=== PATIENT | female | born 1965 | race Caucasian/White ===

== ENCOUNTER → 2020-02-29 11:00 | Outpatient (BNVA) | payer OTHER, SELFPAY | PROVIDERS: Family Provider Nurse Practitioner Family; PCP Nurse Practitioner Family; Visit Provider Emergency Medicine | DX: R07.89 Other chest pain (principal) | CPT/HCPCS: 80053; 80061; 83690; 83880; 84484; 85025 ==

== ENCOUNTER → 2020-06-11 11:51 | Outpatient (BNVA) | payer OTHER, SELFPAY | PROVIDERS: Family Provider Nurse Practitioner Family; PCP Family Medicine; Referring Provider Internal Medicine; Visit Provider Internal Medicine | DX: Z20.822 Contact with and (suspected) exposure to COVID-19 (principal) | CPT/HCPCS: 87635 ==

== ENCOUNTER 2020-06-18 07:48 | Day surgery (SDC) | payer OTHER, SELFPAY ==
[2020-06-16 10:39] VITALS: BMI 46.0
[2020-06-18 08:02] VITALS: BP 154/96; PULSE 103; RESP 18; TEMP 36.8; O2SAT 97
[2020-06-18] MEDS: sodium chloride 0.9% 1,000 ML 30 ML IV (08:06)
--- NOTE | 2020-06-18 08:34 | ANES.PREANE2 ---
Pre-Anesthetic Assessment Pre-Anesthetic Assessment: Height/Weight: Height 1.63 m Weight 121.563 kg Temp Pulse Resp BP Pulse Ox 98.2 F 103 H 18 154/96 97 06/18/20 08:02 06/18/20 08:02 06/18/20 08:02 06/18/20 08:02 06/18/20 08:02 Preop Diagnosis: dbl Proposed Procedure: Operation Date: 06/18/20 09:00 Proposed Procedures p EGD/colon 96153 [id number] K21.9 Z12.11(Not Applicable) - Thomas Del Cid MD s Colonoscopy(Not Applicable) - Thomas Del Cid MD Was Beta Petey taken within 24 hours: N/A Last intake: Intake Last Liquid Date 06/17/20 Last Liquid Time 20:30 Last Solid Date 06/16/20 Social: Social History: No alcohol and No tobacco Exam: Pre-Anes Outpt Exam: alert, oriented x 3, clear to auscultation bilaterally and regular rate & rhythm Airway: Submandibular: WNL Cervical ROM: WNL MP: 2 Dentition: Partials GI: GI: GERD Metabolic: Metabolic: Morbid obesity and Thyroid Neuropsych: Neuropsych: Anxiety and Depression Anesthetic Plan: ASA status: 3 Anesthesia: MAC Risk of > 500 ml blood loss (7ml/kg in children): No Meds/Allergies Current Medications: Current Medications Generic Name Dose Route Start Last Admin Trade Name Freq PRN Reason Stop Dose Admin Sodium Chloride 1,000 mls @ 30 ml s/hr 06/18/20 08:00 06/18/20 08:06 Sodium Chloride 0.9% IV 06/19/20 07:59 30 mls/hr .Q24H MEENA Administration PFSH Anesthesia PFSH: Medical History Carpal tunnel syndrome Surgical History H/O shoulder surgery H/O tubal ligation H/O: hysterectomy History of carpal tunnel surgery Hx of cholecystectomy Family History Mother Hypertension Hyperlipidemia Father Hypertension Grandmother Diabetes Grandmother No problems noted. Grandfather Diabetes Social History (Updated 03/04/20 @ 09:[address]) Smoking and tobacco status: never smoked Alcohol intake: never History of recent travel: No Female Reproductive History: Spontaneous abortions: No Data Anesthesia Cardiac Studies: No Data to Display
--- NOTE | 2020-06-18 08:44 | P.HP_ITS ---
Same Day Surgery H&P Indication for Procedure/HPI DATE OF PROCEDURE: June 18, 2020 CHIEF COMPLAINT/INDICATIONFOR SURGICAL PROCEDURE: GERD, screen for colon cancer PREOP DIAGNOSIS: dbl PLANNED PROCEDRUE: Operation Date: 06/18/20 09:00 Proposed Procedures p EGD/colon 42988 27455 K21.9 Z12.11(Not Applicable) - Thomas Del Cid MD s Colonoscopy(Not Applicable) - Thomas Del Cid MD Medications/Allergies* Home Medications Medication Instructions Recorded Confirmed Type aspirin 81 mg tablet,delayed 81 mg PO DAILY 03/02/20 06/18/20 History release fish, borage, flaxseed oils-omega 1 cap PO DAILY 03/02/20 06/18/20 History 3,6,9 cb #1 400 mg-400 mg-400 mg cap Allergies/Adverse Reactions Allergy/AdvReac Type Severity Reaction Status Date / Time Penicillins Allergy Mild ALGY-Swell Verified 06/18/20 08:11 Lip/Tongue/Throat Current Medications: Generic Name Dose Route Start Last Admin Trade Name Freq PRN Reason Stop Dose Admin Sodium Chloride 1,000 mls @ 30 mls/hr 06/18/20 08:00 06/18/20 08:06 Sodium Chloride 0.9% IV 06/19/20 07:59 30 mls/hr .Q24H MEENA Administration Pertinent History/Comorbid Conditions* Medical History (Updated 04/13/20 @ 12:36 by Jennifer Adam MD) Carpal tunnel syndrome Surgical History (Updated 03/03/20 @ 15:17 by Jennifer Adam MD) H/O shoulder surgery H/O tubal ligation H/O: hysterectomy History of carpal tunnel surgery Hx of cholecystectomy Family History (Updated 02/29/20 @ 11:44 by Екатерина Ramirez LPN) Diabetes Grandmother Grandfather Hyperlipidemia Mother Hypertension Mother Father Social History Smoking and tobacco status: never smoked Alcohol intake: never History of recent travel: No Pertinent Exam Findings alert, oriented x 3, clear to auscultation bilaterally, regular rate & rhythm, operative site marked and procedure specific exam findings Recommendations Surgery/Procedure today Coding Level of Care Code 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
[2020-06-18 09:25] VITALS: BP 105/64; PULSE 78; RESP 16; TEMP 36.2; O2SAT 94
--- NOTE | 2020-06-18 09:37 | ANE.PACU2 ---
Inpatient post-anesthesia follow up: Airway intact: Yes Vital signs: Temperature 97.1 F Pulse Rate 78 Respiratory Rate 16 Blood Pressure 105/64 Pulse Oximetry 94 Oxygen Delivery Me thod Room Air Oxygen Flow Rate Fraction of Inspir ed Oxygen Hydration adequate: Yes Nausea and vomiting: No Pain level: 1 Mental status: Baseline
[2020-06-18 09:40] VITALS: BP 128/83; PULSE 83; RESP 16; TEMP 36.7; O2SAT 95
--- NOTE | 2020-06-18 13:57 | ANE.PACU2 ---
Inpatient post-anesthesia follow up: Airway intact: Yes Vital signs: Temperature 98.0 F Pulse Rate 83 Respiratory Rate 16 Blood Pressure 128/83 Pulse Oximetry 95 Oxygen Delivery Me thod Room Air Oxygen Flow Rate Fraction of Inspir ed Oxygen Hydration adequate: Yes Nausea and vomiting: No Pain level: 1 Mental status: Baseline
[2020-06-21 14:26] LABS: H. Pylori / CLO Test Negative
== END 2020-06-18 10:00 | disposition home or self-care (01) ==
PROVIDERS: PCP Family Medicine; Visit Provider Internal Medicine
PROC: 0DJ08ZZ Inspection of Upper Intestinal Tract, Via Natural or Artificial Opening Endoscopic (ICD-10-PCS; CPT 43235; principal; 2020-06-18 09:00)
PROC: 0DJD8ZZ Inspection of Lower Intestinal Tract, Via Natural or Artificial Opening Endoscopic (ICD-10-PCS; CPT 45378; 2020-06-18 09:00)
DX: Z12.11 Encounter for screening for malignant neoplasm of colon (principal); K21.9 Gastro-esophageal reflux disease without esophagitis; Z79.82 Long term (current) use of aspirin; E66.01 Morbid (severe) obesity due to excess calories; Z68.42 Body mass index [BMI] 45.0-49.9, adult; F41.9 Anxiety disorder, unspecified; F32.9 Major depressive disorder, single episode, unspecified
CPT/HCPCS: 43235; 45378; 87077; J2704; J7030

== ENCOUNTER 2020-07-22 13:57 | Outpatient (CLI) | payer OTHER, SELFPAY ==
--- NOTE | 2020-07-22 14:30 | MM_ITS ---
WS: [id number] SCREENING DIGITAL MAMMOGRAM WITH CAD HISTORY: Z12.39 - Encounter for other screening for malignant neoplasm of breast COMPARISON: None available. Bilateral CC and MLO views submitted. Computer aided detection analyzed. Breast composition: There are scattered areas of fibroglandular density. 6 mm slightly spiculated asy mmetry upper outer quadrant of the LEFT breast with associated calcifications. Some of these calcific ations may extend along a ductal distribution. Otherwise normal fibroglandular pattern. MM/[place] [id number] IMPRESSION: BI-RADS: 0-Incomplete: Need additional imaging evaluation FOLLOW UP: Need Additional Imaging LEFT breast: Spot compression views (CC and MLO). True ML. Ultrasound to follow if abnormality persists.
== END 2020-07-22 13:58 | disposition home or self-care (01) ==
LOC: RADSHAW 14:01
PROVIDERS: PCP Family Medicine; Visit Provider Family Medicine
DX: Z12.31 Encounter for screening mammogram for malignant neoplasm of breast (principal); N64.89 Other specified disorders of breast
CPT/HCPCS: 77067

== ENCOUNTER 2020-08-03 08:22 | Outpatient (CLI) | payer OTHER, SELFPAY ==
--- NOTE | 2020-08-03 08:30 | MM_ITS ---
WS: [id number] ADDITIONAL VIEWS LEFT MAMMOGRAM LEFT BREAST ULTRASOUND HISTORY: N60.19 - Diffuse cystic mastopathy of unspecified breast COMPARISON: 07/22/2020 LEFT MAMMOGRAM: Spot compression views and true ML. The asymmetry in the upper-outer quadrant of the LEFT breast at a middle depth persists but appears l ess dense. This may be normal superimposed fibroglandular density. Focal irregular asymmetry measures 7.7 mm at a middle depth. LEFT BREAST ULTRASOUND 2-D and color Doppler imaging submitted. Ultrasound directed to the upper-outer quadrant of the LEFT breast demonstrates no abnormality. No so lid or cystic masses. No shadowing. MM/[place] [id number] IMPRESSION: BI-RADS: 3-Probably Benign FOLLOW UP: 6 Month Follow-up Recommend diagnostic mammogram follow-up in 6 months and possible ultrasound to reevaluate the asymmetry in the LEFT breast.
--- NOTE | 2020-08-03 08:40 | US_ITS ---
WS: [id number] ADDITIONAL VIEWS LEFT MAMMOGRAM LEFT BREAST ULTRASOUND HISTORY: N60.19 - Diffuse cystic mastopathy of unspecified breast COMPARISON: 07/22/2020 LEFT MAMMOGRAM: Spot compression views and true ML. The asymmetry in the upper-outer quadrant of the LEFT breast at a middle depth persists but appears l ess dense. This may be normal superimposed fibroglandular density. Focal irregular asymmetry measures 7.7 mm at a middle depth. LEFT BREAST ULTRASOUND 2-D and color Doppler imaging submitted. Ultrasound directed to the upper-outer quadrant of the LEFT breast demonstrates no abnormality. No so lid or cystic masses. No shadowing. US/US breast LT limited* [id number] IMPRESSION: BI-RADS: 3-Probably Benign FOLLOW UP: 6 Month Follow-up Recommend diagnostic mammogram follow-up in 6 months and possible ultrasound to reevaluate the asymmetry in the LEFT breast.
== END 2020-08-03 08:23 | disposition home or self-care (01) ==
LOC: RADSHAW 08:23
PROVIDERS: PCP Family Medicine; Visit Provider Family Medicine
DX: N60.12 Diffuse cystic mastopathy of left breast (principal); N64.89 Other specified disorders of breast
CPT/HCPCS: 76642; 77065

== ENCOUNTER → 2020-08-17 12:11 | Outpatient (BNVA) | payer OTHER, SELFPAY | PROVIDERS: PCP Family Medicine; Visit Provider Family Medicine | DX: M25.561 Pain in right knee (principal); H91.93 Unspecified hearing loss, bilateral; M25.562 Pain in left knee; R25.2 Cramp and spasm; M17.12 Unilateral primary osteoarthritis, left knee | CPT/HCPCS: 73562; 80053; 83540; 83735; 85025 ==

== ENCOUNTER 2020-09-03 10:04 | Outpatient (CLI) | payer OTHER, SELFPAY ==
[2020-09-03] MEDS: iohexol 300 mg/mL 100 mL Btl IV (10:42)
--- NOTE | 2020-09-03 11:00 | CT_ITS ---
WS: [id number] CT scan of the head, with and without IV contrast, 09/03/2020 Clinical Data: HEARING LOSS H91.93 Comparison: None. DLP: 1890.77 mGy-cm All CT scans at [facility] use at least one of these dose optimization techniques: automat ed exposure control; mA and/or kV adjustment per patient size (includes targeted exams where dose is matched to clinical indication); or iterative reconstruction. Findings: The ventricular system is normal without shift. No recent infarct or hemorrhage is seen. There are no abnormal intracerebral masses. No aneurysms of the carotid and vertebral basilar systems are seen. N o abnormal contrast enhancement of any structure occurs. There is no evidence of any metastatic lesio ns. The cerebellum and brainstem are not remarkable. Bony windows of the skull and skull base show no fractures or erosions. The mastoid air cells, internal grinder tender al auditory canals, sella turcica, intraorbital contents, and paranasal sinuses are unremarkable. CT/CT head wo/w con [id number] Impression: Negative CT scan of the head with and without IV contrast.
== END 2020-09-03 10:05 | disposition home or self-care (01) ==
LOC: RADWPI 10:06
PROVIDERS: PCP Family Medicine; Visit Provider Otolaryngology
DX: H91.93 Unspecified hearing loss, bilateral (principal)
CPT/HCPCS: 70470; Q9967

== ENCOUNTER 2020-10-01 13:33 | Outpatient (CLI) | payer OTHER, SELFPAY ==
--- NOTE | 2020-10-01 14:00 | CT_ITS ---
WS: [id number] CTA scan of the head and neck. Additional two-dimensional coronal and sagittal reconstruction along w ith MIP images was performed. 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 DLP: 2928.[address] scans at [facility] use at least one of these dose optimization techniques: automat ed exposure control; mA and/or kV adjustment per patient size (includes targeted exams where dose is matched to clinical indication); or iterative reconstruction. Findings: The carotid arteries bifurcate normally into the internal carotid arteries. The vertebral arteries ar e normal. No vascular abnormalities are seen. The jugular veins appear normal. There is no lymphadeno gilma within the neck. The intracerebral circulation shows that the internal carotid arteries bifurca te into the anterior and middle cerebral arteries. The basilar arterial system is normal. The [place] is intact. No aneurysms are seen. There is no prevertebral soft tissue swelling. The bones of the cervical spine and skull demonstrate no fractures.. The intraorbital contents, paranasal sinuses, internal auditory canals and sella turci ca are normal. The left mastoid air cells show minimal cloudiness. The parotid glands are normal. The parapharyngeal areas are unremarkable. The larynx is symmetrical. The thyroid gland shows normal enh ancement. CT/CT angio headneck* [id number] Impression: Negative CTA of the head and neck with no evidence of any vascular abnormalitie s.
[2020-10-01] MEDS: iohexol 350 mg/mL 100 mL Btl IV (14:15)
== END 2020-10-01 13:34 | disposition home or self-care (01) ==
LOC: RADWPI 13:35
PROVIDERS: PCP Family Medicine; Visit Provider Otolaryngology
DX: D49.2 Neoplasm of unspecified behavior of bone, soft tissue, and skin (principal)
CPT/HCPCS: 70496; 70498; Q9967

== ENCOUNTER 2020-12-17 08:56 | Outpatient (CLI) | payer OTHER, SELFPAY ==
--- NOTE | 2020-12-17 09:05 | CT_ITS ---
WS: [id number] Exam: CT temporal bone wo con* [id number] Date/Time of Exam: 12/17/2020 9:06 AM Reason For Exam: OTALGIA, LEFT EAR DLP: 596.[address] scans at [facility] use at least one of these dose optimization techniques: automat ed exposure control; mA and/or kV adjustment per patient size (includes targeted exams where dose is matched to clinical indication); or iterative reconstruction. The temporal bones are evaluated with thin section axial CT scanning with the coronal and sagittal re formatted images. The left middle ear cavity and left mastoid air cells are completely fluid filled. There is fluid col lection behind the left tympanic membrane. No obvious mass or bone destruction is seen. The left inte rnal auditory canal is not enlarged or eroded. The left auditory ossicles appear to be intact. The right mastoid air cells and right middle ear cavity are clear. The auditory ossicles on the right are unremarkable in appearance. The right internal auditory canal appears normal. The right tympanic membrane is intact as visualized. The external auditory canals are bilaterally patent. CT/CT temporal bone wo con* [id number] IMPRESSION: 1. Fluid-filled left mastoid air cells and left middle ear cavity. Significant fluid collection behind the left tympanic membrane. No obvious mass or osseous destruction noted. 2. The structures of the right temporal bone are unremarkable.
== END 2020-12-17 08:57 | disposition home or self-care (01) ==
PROVIDERS: PCP Family Medicine; Visit Provider Specialist
DX: H92.02 Otalgia, left ear (principal)
CPT/HCPCS: 70480

== ENCOUNTER 2021-01-11 14:59 | Outpatient (CLI) | payer OTHER, SELFPAY ==
--- NOTE | 2021-01-11 15:07 | MR_ITS ---
WS: [id number] MRI HEAD WITH CONTRAST WITH ATTENTION TO THE INTERNAL AUDITORY CANALS TECHNIQUE: Sagittal T1, T2 axial, T2 axial flair, axial susceptibility weighted imaging, axial diffus ion weighted images, and coronal T2 images were obtained. Pre and post T1 axial and post T1 coronal i mages. ADC and FSPGR images. Post gadolinium images with attention to the internal auditory canals. A xial fiesta imaging. CLINICAL INFORMATION: OTALGIA LEFT EAR COMPARISON: CT December 17, 2020 FINDINGS: No evidence of restricted diffusion to suggest acute ischemia. Ventricular system and basal cisterns are patent. Mild small vessel changes with mild parenchymal volume loss. Normal posterior fossa. Norm al vascular flow voids at the skull base. No extra axial fluid collections. Fluid opacification left mastoid air cells and middle ear. Proximal 7th and 8th cranial nerves are no rmal in appearance. Normal trigeminal nerve root entry zones. No evidence of enhancing IAC or CP angl e mass. No abnormal intracranial enhancement. Normal optic chiasm and pituitary infundibulum. Normal cavernou s sinuses and Meckel's cave. Normal dural venous sinuses. Incidental slightly low-lying cerebellar to nsils. Normal fourth ventricle. MR/MR iac's wo/w con* [id number] IMPRESSION: 1. No evidence of restricted diffusion to suggest acute ischemia. 2. Mild small vessel changes with mild parenchymal volume loss. 3. Fluid opacification left mastoid air cells and left middle ear. 4. 7th and 8th cranial nerves are normal in appearance. No evidence of enhanci ng IAC or CP angle mass. 5. Normal trigeminal nerve root entry zones. 6. Paranasal sinuses are well aerated. 7. No other acute findings.
[2021-01-11] MEDS: gadobenate dimeglumine 20 mL vial IV (16:26)
== END 2021-01-11 15:00 | disposition home or self-care (01) ==
PROVIDERS: PCP Family Medicine; Visit Provider Specialist
DX: H92.02 Otalgia, left ear (principal); Z01.89 Encounter for other specified special examinations
CPT/HCPCS: 70553; A9577

== ENCOUNTER 2021-03-11 07:45 | Outpatient (CLI) | payer OTHER, SELFPAY ==
--- NOTE | 2021-03-11 07:50 | US_ITS ---
WS: [id number] Exam: US breast LT limited* [id number] Date/Time of Exam: 03/11/2021 9:09 AM Reason For Exam: R92.8 - Other abnormal and inconclusive findings on diagn... Regional ultrasound of the left breast was performed from the 12:00 to the 3:00 position. At the 12:00 position a simple cyst which is well-defined is noted. This cyst measures 0.64 x 0.9 x 0 .48 cm. No suspicious solid mass or nodule was demonstrated in this region. Recommendations: Continue yearly screening mammography. US/US breast LT limited* [id number] IMPRESSION: 1. 0.9 cm simple cyst at the 12:00 position. 2. No suspicious solid mass or nodule is noted in this region. 3. BI-RADS Category 2. Benign.
--- NOTE | 2021-03-11 08:00 | MM_ITS ---
WS: [id number] Exam: [place] [id number] Date/Time of Exam: 03/11/2021 8:00 AM Reason For Exam: R92.8 - Other abnormal and inconclusive findings on diagn... VIEWS: MLO, CC, and ML views left breast only Comparison made with prior exam of 07/22/2020. Findings: Asymmetric breast parenchyma identified in the lateral aspect of the left breast is stable in appeara nce. No discrete mass or suspicious calcification pattern.Scattered fibroglandular densities MM/[place] [id number] Impression: BI-RADS: 0-Incomplete: Need additional imaging evaluation FOLLOW-UP: Need Additional Imaging This mammogram was also analyzed by the Computer Aided Detection System R2 Imag e Audio Visual Production Specialist.
== END 2021-03-11 07:46 | disposition home or self-care (01) ==
LOC: RADSHAW 07:48
PROVIDERS: PCP Family Medicine; Visit Provider Family Medicine
DX: R92.8 Other abnormal and inconclusive findings on diagnostic imaging of breast (principal)
CPT/HCPCS: 76642; 77065; 86334; 86335

== ENCOUNTER → 2021-04-22 10:21 | Outpatient (BNVA) | payer OTHER, SELFPAY | PROVIDERS: PCP Family Medicine; Visit Provider Emergency Medicine | DX: Z20.822 Contact with and (suspected) exposure to COVID-19 (principal) | CPT/HCPCS: 87635 ==

== ENCOUNTER → 2021-06-07 14:34 | Outpatient (BNVA) | payer OTHER, SELFPAY | PROVIDERS: PCP Family Medicine; Visit Provider Family Medicine | DX: M62.838 Other muscle spasm (principal); M54.2 Cervicalgia | CPT/HCPCS: 72040 ==

== ENCOUNTER → 2021-06-24 14:25 | Outpatient (BNVA) | payer OTHER, SELFPAY | PROVIDERS: PCP Family Medicine; Visit Provider Family Medicine | DX: M62.838 Other muscle spasm (principal); M54.2 Cervicalgia; K21.00 Gastro-esophageal reflux disease with esophagitis, without bleeding; M25.561 Pain in right knee; M25.562 Pain in left knee; G89.29 Other chronic pain; F41.1 Generalized anxiety disorder; E66.9 Obesity, unspecified; R21 Rash and other nonspecific skin eruption; L82.1 Other seborrheic keratosis; E03.9 Hypothyroidism, unspecified; F33.1 Major depressive disorder, recurrent, moderate | CPT/HCPCS: 72100; 73521; 73522 ==

== ENCOUNTER → 2021-07-19 13:06 | Outpatient (BNVA) | payer OTHER, SELFPAY | PROVIDERS: PCP Family Medicine; Visit Provider Family Medicine | DX: E55.9 Vitamin D deficiency, unspecified (principal); I10 Essential (primary) hypertension; R25.2 Cramp and spasm; Z13.220 Encounter for screening for lipoid disorders; Z13.6 Encounter for screening for cardiovascular disorders; R73.03 Prediabetes; M25.50 Pain in unspecified joint; E03.9 Hypothyroidism, unspecified | CPT/HCPCS: 80053; 80061; 82652; 83036; 83735; 84439; 84443; 84481; 85651; 86038; 86140 ==

== ENCOUNTER 2021-07-29 10:02 | Outpatient (CLI) | payer OTHER, SELFPAY ==
--- NOTE | 2021-07-29 10:14 | MM_ITS ---
WS: [id number] BILATERAL 3D TOMOSYNTHESIS DIGITAL SCREENING MAMMOGRAPHY WITH CAD CLINICAL INFORMATION: SCREENING HISTORY: Screening mammogram. No current complaints. COMPARISON: March 11, 2021 TECHNIQUE: Bilateral CC and MLO views. FINDINGS: Scattered fibroglandular densities bilaterally. A few incidental punctate calcifications. Stable clus ters of calcifications upper outer LEFT breast. No suspicious focal mass, asymmetry, calcifications, or architectural distortion. No evidence of malignancy. MM/[place] [id number] IMPRESSION: BI-RADS: 2-Benign FOLLOW UP: 1 Year Follow-up Recommend return to annual screening mammography.
== END 2021-07-29 10:03 | disposition home or self-care (01) ==
LOC: RAD 10:04
PROVIDERS: PCP Family Medicine; Visit Provider Family Medicine
DX: Z12.31 Encounter for screening mammogram for malignant neoplasm of breast (principal)
CPT/HCPCS: 77063; 77067

== ENCOUNTER 2021-08-09 08:40 | Outpatient (CLI) | payer OTHER, SELFPAY ==
--- NOTE | 2021-08-09 08:45 | MR_ITS ---
WS: [id number] MRI CERVICAL SPINE NONCONTRAST HISTORY: M54.2 - Cervicalgia COMPARISON: None available. Technique: Multiplanar, multisequence noncontrast imaging of the cervical spine. Straightening of the normal cervical lordosis. C5 retrolisthesis by 2 mm. There is mild disc desiccat ion throughout the entire cervical spine. No fracture or marrow edema. Signal within the cervical cord is normal. Visualized posterior fossa is unremarkable. Craniocervical junction, C1 and C2 relationship, odontoid process and soft tissues are normal. C2-C3: Normal. C3-C4: Normal. C4-C5: Mild osteophytic ridging with a shallow LEFT foraminal disc osteophyte. Very minimal narrowing of the LEFT foramen. C5-C6: Asymmetric osteophytic ridging extends into the LEFT foramen. No focal disc protrusion. There is very mild narrowing of the LEFT foramen. There is mild osteophyte and disc encroachment upon the v entral thecal sac. Mild central stenosis. C6-C7: Mild osteophytic ridging. No stenosis. C7-T1: Normal. Paraspinal soft tissue are normal. MR/MR cervical spin wo con* [id number] IMPRESSION: 1. Mild straightening of the normal cervical lordosis. 2. Degenerative disc disease is mild throughout the cervical spine. 3. Shallow LEFT foraminal disc osteophyte at C4-5 causing mild LEFT foraminal narrowing. 4. Mild central LEFT foraminal narrowing at C5-6 due to disc and osteophyte di sease.
== END 2021-08-09 08:41 | disposition home or self-care (01) ==
PROVIDERS: PCP Family Medicine; Visit Provider Family Medicine
DX: M47.892 Other spondylosis, cervical region (principal); M25.78 Osteophyte, vertebrae; G89.29 Other chronic pain; M54.2 Cervicalgia
CPT/HCPCS: 72141

== ENCOUNTER → 2021-08-23 13:59 | Outpatient (BNVA) | payer OTHER, SELFPAY | PROVIDERS: PCP Family Medicine; Visit Provider Internal Medicine | DX: M25.50 Pain in unspecified joint (principal); M54.50 Low back pain, unspecified; R70.0 Elevated erythrocyte sedimentation rate | CPT/HCPCS: 36415; 73120; 80053; 81003; 82550; 83516; 85025; 85651; 86160; 86162; 86200; 86235; 86255; 86376; 86431; 86704; 86803; 87340 ==

== ENCOUNTER → 2021-09-27 09:20 | Outpatient (BNVA) | payer OTHER, SELFPAY | PROVIDERS: PCP Family Medicine; Referring Provider Family Medicine; Visit Provider Physician Assistant | DX: M62.838 Other muscle spasm (principal) | CPT/HCPCS: 72050 ==

== ENCOUNTER 2021-10-11 06:00 | Outpatient (RCR) | payer OTHER, SELFPAY | END 2021-10-20 23:59 | disposition home or self-care (01) | LOC: MPT 06:00 | PROVIDERS: PCP Family Medicine; Referring Provider Family Medicine; Visit Provider Family Medicine | DX: M54.2 Cervicalgia (principal) | CPT/HCPCS: 97110; 97140; 97161 ==

== ENCOUNTER 2021-10-21 06:00 | Outpatient (RCR) | payer OTHER, SELFPAY | END 2021-11-20 23:59 | disposition home or self-care (01) | LOC: MPT 06:00 | PROVIDERS: PCP Family Medicine; Referring Provider Family Medicine; Visit Provider Family Medicine | DX: M54.2 Cervicalgia (principal) | CPT/HCPCS: 97110; 97140; G0283 ==

== ENCOUNTER → 2021-11-17 16:30 | Outpatient (BNVA) | payer OTHER, SELFPAY | PROVIDERS: PCP Family Medicine; Visit Provider Internal Medicine | DX: D49.2 Neoplasm of unspecified behavior of bone, soft tissue, and skin (principal); M25.50 Pain in unspecified joint; Z79.899 Other long term (current) drug therapy | CPT/HCPCS: 80053; 82550; 85025; 85651; 86140 ==

== ENCOUNTER 2021-11-21 06:00 | Outpatient (RCR) | payer OTHER, SELFPAY | END 2021-12-21 23:59 | disposition home or self-care (01) | LOC: MPT 06:00 | PROVIDERS: PCP Family Medicine; Referring Provider Family Medicine; Visit Provider Family Medicine | DX: M54.2 Cervicalgia (principal) | CPT/HCPCS: 97110; 97140; G0283 ==

== ENCOUNTER → 2021-11-27 15:36 | Outpatient (BNVA) | payer OTHER, SELFPAY | PROVIDERS: PCP Family Medicine; Visit Provider Emergency Medicine | DX: R73.9 Hyperglycemia, unspecified (principal); M54.42 Lumbago with sciatica, left side; N18.9 Chronic kidney disease, unspecified | CPT/HCPCS: 80053; 81000; 83036 ==

== ENCOUNTER 2021-12-02 09:19 | Outpatient (CLI) | payer OTHER, SELFPAY ==
--- NOTE | 2021-12-02 09:27 | CT_ITS ---
WS: [id number] CT TEMPORAL BONES TECHNIQUE: Noncontrast CT of the temporal bones with coronal and sagittal reformatted images. CLINICAL INFORMATION: MENINGOENCEPHALOCELE COMPARISON: CT December 17, 2020 and MRI January 11, 2021 DLP: 621.[address] scans at [facility] use at least one of these dose optimization techniques: automated e xposure control; mA and/or kV adjustment per patient size (includes targeted exams where dose is matc hed to clinical indication); or iterative reconstruction. FINDINGS: RIGHT:Thinning with suspected dehiscence of the RIGHT tegmen tympani appears unchanged from previous but better evaluated today due to thinner high-resolution imaging. No fluid within the RIGHT middle e ar. Mastoid air cells are well aerated. Normal external auditory canal. Ossicles are normal in appearance . Middle ear is well aerated. Semicircular canals and cochlea are normal in appearance. Prussak's spa ce is normal. Normal inner ear structures. Normal vestibular aqueduct. Facial nerve recess is normal. LEFT: Postoperative changes canal wall up LEFT mastoidectomy. Mastoidectomy bowl is well aerated. 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 Mild mucosal t hickening with a small amount of fluid Prussaks space and LEFT epitympanum along the ossicles. This h as significantly improved from previous. Middle ear is otherwise well aerated today. Normal external auditory canal. Ossicles are otherwise normal in appearance. Semicircular canals and cochlea are normal in appearance. Normal inner ear structures. Normal vestibular aqueduct. Facial ner ve recess is normal. CT/CT temporal bone wo con* [id number] IMPRESSION: 1. Interval postoperative changes LEFT canal wall up mastoidectomy. The mastoi dectomy bowl is clear. 2. 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 3. Bone grafting LEFT middle cranial fossa partially covers the tegmen tympani . Persistent suspected area of tegmen tympani dehiscence medial and posterior t o the graft with a small amount of abutting underlying fluid and soft tissue th ickening in the epitympanum. Recommend correlation with surgical history and gr afting in this area. 4. Thinning with suspected dehiscence of the RIGHT tegmen tympani appears unch anged from previous but better evaluated today due to thinner high-resolution i maging. No fluid within the RIGHT middle ear. 5. No other suspicious findings.
== END 2021-12-02 09:20 | disposition home or self-care (01) ==
LOC: RAD 09:20
PROVIDERS: PCP Family Medicine; Visit Provider Specialist
DX: Q01.8 Encephalocele of other sites (principal)
CPT/HCPCS: 70480

== ENCOUNTER 2021-12-22 06:00 | Outpatient (RCR) | payer OTHER, SELFPAY | END 2022-01-03 23:59 | disposition home or self-care (01) | LOC: MPT 06:00 | PROVIDERS: PCP Family Medicine; Visit Provider Family Medicine | DX: M54.2 Cervicalgia (principal) | CPT/HCPCS: 97110; 97140; G0283 ==

== ENCOUNTER → 2022-01-02 13:14 | Outpatient (BNVA) | payer OTHER, SELFPAY | PROVIDERS: PCP Family Medicine; Visit Provider Family Medicine | DX: N18.9 Chronic kidney disease, unspecified (principal); R22.40 Localized swelling, mass and lump, unspecified lower limb | CPT/HCPCS: 80053 ==

== ENCOUNTER 2022-01-31 14:50 | Outpatient (CLI) | payer OTHER, SELFPAY ==
--- NOTE | 2022-01-31 15:15 | US_ITS ---
WS: [id number] ULTRASOUND SOFT TISSUES distal thigh. HISTORY: painful palpable lump of left leg COMPARISON: None available. TECHNIQUE: 2-D and color Doppler imaging is submitted. Palpable area along the distal LEFT thigh is negative for underlying mass. There is a small amount of fluid noted distally which is probably associated with the suprapatellar bursa. The superficial soft tissues directed by the patient are negative. US/US soft tissue/extremity [id number] IMPRESSION: 1. No soft tissue abnormality along the distal LEFT thigh. 2. There is a small complex fluid collection which is probably fluid in the mensah prapatellar bursa. This does not really correspond to the palpable area.
== END 2022-01-31 14:51 | disposition home or self-care (01) ==
LOC: RAD 14:51
PROVIDERS: PCP Family Medicine; Visit Provider Family Medicine
DX: R22.40 Localized swelling, mass and lump, unspecified lower limb (principal)
CPT/HCPCS: 76882

== ENCOUNTER → 2022-03-12 14:54 | Outpatient (BNVA) | payer OTHER, SELFPAY | PROVIDERS: PCP Family Medicine; Visit Provider Emergency Medicine | DX: J02.9 Acute pharyngitis, unspecified (principal); J00 Acute nasopharyngitis [common cold] | CPT/HCPCS: 87071; 87400; 87880 ==

== ENCOUNTER → 2022-04-04 13:21 | Outpatient (BNVA) | payer OTHER, SELFPAY | PROVIDERS: PCP Family Medicine; Visit Provider Family Medicine | DX: I10 Essential (primary) hypertension (principal); M62.838 Other muscle spasm; K21.00 Gastro-esophageal reflux disease with esophagitis, without bleeding; E03.9 Hypothyroidism, unspecified; M10.9 Gout, unspecified; M47.812 Spondylosis without myelopathy or radiculopathy, cervical region; F41.1 Generalized anxiety disorder; F33.1 Major depressive disorder, recurrent, moderate; F32.9 Major depressive disorder, single episode, unspecified; N18.9 Chronic kidney disease, unspecified; M54.16 Radiculopathy, lumbar region; M25.50 Pain in unspecified joint; M79.662 Pain in left lower leg | CPT/HCPCS: 80048; 84443 ==

== ENCOUNTER → 2022-04-25 15:31 | Outpatient (BNVA) | payer OTHER, SELFPAY | PROVIDERS: PCP Family Medicine; Referring Provider Internal Medicine; Visit Provider Internal Medicine | DX: N18.9 Chronic kidney disease, unspecified (principal) | CPT/HCPCS: 80069; 82088; 82533; 82542; 82570; 82652; 84156; 84244; 84550; 85025 ==

== ENCOUNTER → 2022-05-18 09:19 | Outpatient (BNVA) | payer OTHER, SELFPAY | PROVIDERS: PCP Family Medicine; Visit Provider Internal Medicine | DX: E03.9 Hypothyroidism, unspecified (principal); N18.9 Chronic kidney disease, unspecified | CPT/HCPCS: 80048; 84439; 84443; 84481 ==

== ENCOUNTER 2022-06-19 12:35 | Outpatient (CLI) | payer OTHER, SELFPAY ==
--- NOTE | 2022-06-19 12:43 | USCV_ITS ---
Tamiko Case Age: 57 Gender: F : 1965 Exam Date: 06/19/2022 13:00 Ordering Phys: Eitan Howard MD Technologist: KELSEY [place]am [place] [facility] [place] Indication: htn Aortic Velocity @ SMA (cm/s) 105 RIGHT KIDNEY LEFT KIDNEY Velocity (cm/s) Velocity (cm/s) Sys/Gardner Sys/Gardner Resistive Index Resistive Index 89.6 / 33.9 0.62 Proximal Renal Artery 107.0 / 31.3 0.71 100.9 / 25.2 0.75 Mid Renal Artery 81.8 / 22.6 0.72 83.5 / 27.8 0.67 Distal Renal Artery 68.7 / 18.3 0.73 100.9 / 28.7 0.72 Hilar 55.7 / 12.9 0.77 77.4 / 24.4 0.69 Upper Pole 52.3 / 17.0 0.68 83.5 / 27.0 0.68 Mid Pole 32.6 / 10.5 0.68 77.4 / 28.7 0.63 Lower Pole 44.2 / 15.3 0.65 1.00 Renal Aortic Ratio 1.02 Accleration Index (cm/sec2) 1505.0 Hilar 1034.0 0 0 1284.0 Upper Pole 994.00 0 1872.0 Mid Pole 364.00 0 2579.0 Lower Pole 693.00 0 102.2 Kidney Length (mm) 97.0 FINDINGS Normal renal artery to aortic ratio was bilaterally Normal resistive indicis Diminished acceleration indicis on the left side Normal coronary dimensions CONCLUSIONS 1. Near normal indicis, ratios and kidney dimension on the right side 2. Slightly diminished kidney dimension with low resistive indicis may suggest renal artery stenosis on the left side. However in view of the normal Doppler velocities, ratios and indicis, this could be misleading. Consider CTA or MRA to better evaluate the renal arteries, if clinically indicated No similar previous studies are available for comparison Dr Sean Singleton MD [facility] (Electronically Signed) Final Date: 21 June 2022 05:55 S
== END 2022-06-19 12:36 | disposition home or self-care (01) ==
LOC: RAD 12:38
PROVIDERS: PCP Family Medicine; Visit Provider Internal Medicine
DX: N18.31 Chronic kidney disease, stage 3a (principal)
CPT/HCPCS: 93975

== ENCOUNTER → 2022-07-04 14:08 | Outpatient (BNVA) | payer OTHER, SELFPAY | PROVIDERS: PCP Family Medicine; Visit Provider Internal Medicine | DX: M25.50 Pain in unspecified joint (principal) | CPT/HCPCS: 80053; 84550; 85025; 85651; 86140 ==

== ENCOUNTER 2022-07-17 12:53 | Outpatient (CLI) | payer OTHER, SELFPAY ==
--- NOTE | 2022-07-17 13:04 | CTR_ITS ---
PROCEDURE INFORMATION: Exam: CTA Abdomen and Pelvis With Contrast Exam date and time: 07/17/2022 1:20 PM Age: 57 years old Clinical indication: Condition or disease; Other: Renovascular hypertension; Hypertension, renovascular; Prior surgery; Surgery type: Hyst, appy, gb, TECHNIQUE: Imaging protocol: Computed tomographic angiography of the abdomen and pelvis with contrast. 3D rendering (Not supervised by radiologist): MIP and/or 3D reconstructed images were created by the technologist. Radiation optimization: All CT scans at this facility use at least one of these dose optimization techniques: automated exposure control; mA and/or kV adjustment per patient size (includes targeted exams where dose is matched to clinical indication); or iterative reconstruction. Contrast material: OMNI 350; Contrast volume: 95 ml; Contrast route: INTRAVENOUS (IV); REPORTING DATA: Count of CT and Cardiac NM exams in prior 12 months: This patient has received [address] and 0 known cardiac nuclear medicine studies in the 12 months prior to the current study. COMPARISON: CR XR hip BI 3-4V wo/w pel [id number] 06/24/2021 2:38 PM RADIATION DOSE METRICS: Total DLP (mGy-cm): 1047.35 FINDINGS: Lungs: Lung bases are clear. Aorta: No abdominal aortic aneurysm is seen. No calcified atherosclerotic plaque is seen. Celiac trunk and mesenteric arteries: Celiac trunk is patent. Superior mesenteric artery is patent. Inferior mesenteric artery is patent. Renal arteries: The renal arteries are patent bilaterally. No renal artery stenosis or dissection is seen. Right iliac arteries: No occlusion or significant stenosis. Left iliac arteries: There is an abnormal appearance of the left common iliac artery, centered approximately 3 cm from the vessel origin, which is possibly artifactual, but axial images show decreased luminal caliber and concern for dissection. Liver: See Stomach and bowel finding. Gallbladder and bile ducts: There has been a cholecystectomy. Pancreas: The pancreas is normal. Spleen: The spleen is normal. Adrenal glands: The adrenal glands are normal. Kidneys and ureters: The kidneys are normal. Stomach and bowel: There is an ovoid 2.5 cm hypodensity abutting the tip of the liver and the superior wall of the proximal ascending colon, exhibiting rim calcification. This lesion is nonspecific but contains no definite nodular component or surrounding infiltration, is most likely a benign finding. However, correlation with previous and/or follow-up imaging is suggested to confirm stability. The liver is otherwise unremarkable. Diverticulosis coli is noted, with no inflammatory changes to indicate diverticulitis. No bowel obstruction is seen. Appendix: No findings of acute appendicitis. Evidence of previous appendectomy. Intraperitoneal space: The no free air. No free fluid. Lymph nodes: No abnormally enlarged lymph nodes identified. Urinary bladder: The bladder is normal. Reproductive: Previous hysterectomy. Bones/joints: Spinal degenerative changes noted. No acute osseous abnormality is detected. Soft tissues: Unremarkable. CT/CT angio abdomen pelvis [id number] IMPRESSION: 1. 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 2. Diverticulosis coli. 3. Nonaggressive exophytic renal cortical cyst versus enlarged proximal colonic diverticulum, as detailed above.
[2022-07-17] MEDS: iohexol 350 mg/mL 500 mL Btl (per mL) IV (13:33)
== END 2022-07-17 12:54 | disposition home or self-care (01) ==
PROVIDERS: PCP Family Medicine; Visit Provider Internal Medicine
DX: I15.0 Renovascular hypertension (principal); K57.90 Diverticulosis of intestine, part unspecified, without perforation or abscess without bleeding
CPT/HCPCS: 74174; Q9967

== ENCOUNTER 2022-08-14 14:18 | Outpatient (CLI) | payer OTHER, SELFPAY ==
--- NOTE | 2022-08-14 14:39 | MM_ITS ---
WS: [id number] BILATERAL 3D TOMOSYNTHESIS DIGITAL SCREENING MAMMOGRAPHY WITH CAD CLINICAL INFORMATION: SCREENING HISTORY: Screening mammogram. No current complaints. COMPARISON: July 29, 2021 TECHNIQUE: Bilateral CC and MLO views. FINDINGS: Scattered fibroglandular densities bilaterally. A few incidental punctate calcifications. Stable clusters of calcifications upper outer LEFT breast No suspicious focal mass, asymmetry, calcifications, or architectural distortion. No evidence of nat gnancy. MM/[place] [id number] IMPRESSION: BI-RADS: 2-Benign FOLLOW UP: 1 Year Follow-up Recommend return to annual screening mammography.
== END 2022-08-14 14:19 | disposition home or self-care (01) ==
LOC: RAD 14:21
PROVIDERS: PCP Family Medicine; Visit Provider Family Medicine
DX: Z12.31 Encounter for screening mammogram for malignant neoplasm of breast (principal)
CPT/HCPCS: 36415; 77063; 77067; 82784; 83516; 84439; 84443; 84480

== ENCOUNTER → 2022-10-03 09:13 | Outpatient (BNVA) | payer OTHER, SELFPAY | PROVIDERS: PCP Family Medicine; Visit Provider Internal Medicine Rheumatology | DX: E03.9 Hypothyroidism, unspecified (principal); K21.9 Gastro-esophageal reflux disease without esophagitis | CPT/HCPCS: 84439; 84443; 84480 ==

== ENCOUNTER → 2022-10-31 15:43 | Outpatient (BNVA) | payer OTHER, SELFPAY | PROVIDERS: PCP Family Medicine; Visit Provider Family Medicine | DX: N18.9 Chronic kidney disease, unspecified (principal); F41.1 Generalized anxiety disorder; F33.1 Major depressive disorder, recurrent, moderate; F32.9 Major depressive disorder, single episode, unspecified; M47.812 Spondylosis without myelopathy or radiculopathy, cervical region; E03.9 Hypothyroidism, unspecified; K21.00 Gastro-esophageal reflux disease with esophagitis, without bleeding; M62.838 Other muscle spasm; I10 Essential (primary) hypertension; R73.03 Prediabetes; Z13.220 Encounter for screening for lipoid disorders; Z13.6 Encounter for screening for cardiovascular disorders; N18.31 Chronic kidney disease, stage 3a | CPT/HCPCS: 80061; 80069; 82043; 82310; 83036; 83970; 84550 ==

== ENCOUNTER → 2022-11-20 15:17 | Outpatient (BNVA) | payer OTHER, SELFPAY | PROVIDERS: PCP Family Medicine; Visit Provider Nurse Practitioner Family | DX: M25.562 Pain in left knee (principal) | CPT/HCPCS: 73562 ==

== ENCOUNTER → 2022-12-26 09:11 | Outpatient (BNVA) | payer OTHER, SELFPAY | PROVIDERS: PCP Family Medicine; Visit Provider Internal Medicine | DX: E11.9 Type 2 diabetes mellitus without complications (principal); K21.00 Gastro-esophageal reflux disease with esophagitis, without bleeding; R73.03 Prediabetes; E03.9 Hypothyroidism, unspecified | CPT/HCPCS: 36415; 82784; 83516; 84439; 84443 ==

== ENCOUNTER → 2023-01-02 11:13 | Outpatient (BNVA) | payer OTHER, SELFPAY | PROVIDERS: PCP Family Medicine; Visit Provider Family Medicine | DX: N18.9 Chronic kidney disease, unspecified (principal) | CPT/HCPCS: 80069; 82043; 82310; 83970; 84550; 85025 ==

== ENCOUNTER → 2023-01-27 13:41 | Outpatient (BNVA) | payer OTHER, SELFPAY | PROVIDERS: PCP Family Medicine; Visit Provider Nurse Practitioner Family | DX: M25.562 Pain in left knee (principal); M62.831 Muscle spasm of calf; M79.89 Other specified soft tissue disorders | CPT/HCPCS: 73562 ==

== ENCOUNTER → 2023-02-21 13:16 | Outpatient (BNVA) | payer OTHER, SELFPAY | PROVIDERS: PCP Family Medicine; Visit Provider Emergency Medicine | DX: S67.10XA Crushing injury of unspecified finger(s), initial encounter (principal); X58.XXXA Exposure to other specified factors, initial encounter | CPT/HCPCS: 73140 ==

== ENCOUNTER → 2023-03-02 11:03 | Outpatient (BNVA) | payer OTHER, SELFPAY | PROVIDERS: PCP Family Medicine; Referring Provider Nurse Practitioner Family; Visit Provider Physician Assistant | DX: M17.12 Unilateral primary osteoarthritis, left knee | CPT/HCPCS: 73560; 73565 ==

== ENCOUNTER → 2023-06-04 11:15 | Outpatient (BNVA) | payer OTHER, SELFPAY | PROVIDERS: PCP Family Medicine; Visit Provider Emergency Medicine | DX: M19.012 Primary osteoarthritis, left shoulder (principal); M25.512 Pain in left shoulder; G89.29 Other chronic pain | CPT/HCPCS: 73030 ==

== ENCOUNTER → 2023-07-24 11:34 | Outpatient (BNVA) | payer OTHER, SELFPAY | PROVIDERS: PCP Family Medicine; Visit Provider Internal Medicine | DX: R73.03 Prediabetes (principal); N18.30 Chronic kidney disease, stage 3 unspecified; I10 Essential (primary) hypertension | CPT/HCPCS: 36415; 80053; 80061; 82044; 83036; 84439; 84443 ==

== ENCOUNTER → 2023-09-04 17:33 | Outpatient (BNVA) | payer OTHER, SELFPAY | PROVIDERS: PCP Family Medicine; Visit Provider Internal Medicine Rheumatology | DX: N18.30 Chronic kidney disease, stage 3 unspecified (principal); M19.012 Primary osteoarthritis, left shoulder; N18.31 Chronic kidney disease, stage 3a | CPT/HCPCS: 80076; 82565; 84550; 85025; 85651; 86140 ==

== ENCOUNTER 2023-09-07 07:41 | Outpatient (CLI) | payer OTHER, SELFPAY ==
--- NOTE | 2023-09-07 08:00 | MM_ITS ---
WS: [id number] Bilateral screening 3D tomosynthesis digital mammogram, 09/07/2023 Clinical Data: Z12.39 - Encounter for other screening for malignant neop... Comparison: 08/14/2022, 07/29/2021, 03/11/2021, 08/03/2020, 07/22/2020. Findings: The breast parenchymal pattern shows fibroglandular tissue. No spiculated masses or clustered calcifi cations are seen. There are no secondary signs of carcinoma. MM/[place] [id number] Impression: 1. Negative bilateral mammogram unchanged. 2. Recommend annual screening mammograms. BIRADS: 1-Negative FOLLOW UP: 1 Year Follow-up The CAD maturity checker was used.
== END 2023-09-07 07:42 | disposition home or self-care (01) ==
LOC: RAD 07:41
PROVIDERS: PCP Family Medicine; Visit Provider Family Medicine
DX: Z12.31 Encounter for screening mammogram for malignant neoplasm of breast (principal)
CPT/HCPCS: 77063; 77067

== ENCOUNTER → 2023-09-14 12:57 | Outpatient (BNVA) | payer OTHER, SELFPAY | PROVIDERS: PCP Family Medicine; Visit Provider Internal Medicine Rheumatology | DX: M54.16 Radiculopathy, lumbar region (principal); M47.896 Other spondylosis, lumbar region | CPT/HCPCS: 72100 ==

== ENCOUNTER → 2023-10-29 08:47 | Outpatient (BNVA) | payer OTHER, SELFPAY | PROVIDERS: PCP Family Medicine; Referring Provider Internal Medicine; Visit Provider Internal Medicine | DX: N18.30 Chronic kidney disease, stage 3 unspecified (principal); E03.9 Hypothyroidism, unspecified; O24.919 Unspecified diabetes mellitus in pregnancy, unspecified trimester; R73.03 Prediabetes | CPT/HCPCS: 80053; 80061; 82043; 83036; 84439; 84443 ==

== ENCOUNTER 2023-11-27 12:13 | Outpatient (CLI) | payer OTHER, SELFPAY ==
[2023-11-27 13:47] LABS: Free T4 Free Thyroxine 1.64 ng/dL (0.82-1.77)
== END 2023-11-27 12:14 | disposition home or self-care (01) ==
LOC: LAB 12:13
PROVIDERS: PCP Family Medicine; Visit Provider Internal Medicine
DX: E03.9 Hypothyroidism, unspecified (principal)
CPT/HCPCS: 36415; 84439

== ENCOUNTER → 2023-12-10 10:43 | Outpatient (BNVA) | payer OTHER, SELFPAY | PROVIDERS: PCP Family Medicine; Visit Provider Physician Assistant | DX: R68.89 Other general symptoms and signs (principal) | CPT/HCPCS: 87426 ==

== ENCOUNTER → 2023-12-31 13:31 | Outpatient (BNVA) | payer OTHER, SELFPAY | PROVIDERS: PCP Family Medicine; Visit Provider Family Medicine | DX: I10 Essential (primary) hypertension (principal); R25.2 Cramp and spasm; E03.9 Hypothyroidism, unspecified | CPT/HCPCS: 80048; 83735; 84439; 84443; 84481 ==

== ENCOUNTER → 2024-02-05 09:52 | Outpatient (BNVA) | payer OTHER, SELFPAY | PROVIDERS: PCP Family Medicine; Referring Provider Internal Medicine Rheumatology; Visit Provider Internal Medicine Rheumatology | DX: M25.562 Pain in left knee (principal); Z79.899 Other long term (current) drug therapy | CPT/HCPCS: 80076; 82306; 82565; 84550; 85025; 85651; 86140 ==

== ENCOUNTER → 2024-03-23 12:15 | Outpatient (BNVA) | payer OTHER, SELFPAY | PROVIDERS: PCP Family Medicine; Visit Provider Emergency Medicine | DX: R19.7 Diarrhea, unspecified (principal) | CPT/HCPCS: 80053; 83735 ==

== ENCOUNTER 2024-04-29 10:00 | Emergency (ER) | payer OTHER, SELFPAY ==
[2024-04-29] VITALS (7 sets, daily range): BP systolic 106–147; BP diastolic 37–85; PULSE 70–79; RESP 15–20; TEMP 36.7; O2SAT 96–100; BMI 50.1
--- NOTE | 2024-04-29 10:15 | XRR_ITS ---
PROCEDURE INFORMATION: Exam: XR Chest Exam date and time: 04/29/2024 10:32 AM Age: 59 years old Clinical indication: Other: Weakness; Prior surgery; Surgery date: 6+ months; Surgery type: Right shoulder TECHNIQUE: Imaging protocol: Radiologic exam of the chest. Views: 1 view. COMPARISON: CR XR shoulder LT min 2V* [id number] 06/04/2023 11:25 AM FINDINGS: Lungs: Unremarkable. No consolidation. Pleural spaces: Unremarkable. No pleural effusion. No pneumothorax. Heart/Mediastinum: Unremarkable. No cardiomegaly. Bones/joints: There are postoperative changes status post right shoulder replacement. There are changes of osteoarthritis involving the left shoulder. There is a scoliotic curvature convex right. XR/XR chest 1V portable [id number] IMPRESSION: 1. No acute cardiopulmonary findings.
--- NOTE | 2024-04-29 10:15 | ECG_ITS ---
[employer] Test Date: 2024-04-29 Pat Name: Tamiko Case Department: Room: Gender: Female Contact Center Assistant: : 1965 Requested By: Leydi Adams Order Number: [id number] Velasco MD: Armaan Humphrey M.D. Measurements Intervals [place] Rate: 73 P: 57 GA: 144 QRS: 16 QRSD: 102 T: 29 QT: 412 QTc: 456 Interpretive Statements SINUS RHYTHM LOW QRS VOLTAGE IN PRECORDIAL LEADS [QRS DEFLECTION < 1.0 mV IN CHEST LEADS] POSSIBLE ANTERIOR MYOCARDIAL INFARCTION , OF INDETERMINATE AGE [30 ms Q WAVE IN V3/V4, OR R < 0.2 mV IN V4] No previous ECG available for comparison Electronically Signed On 04-29-2024 21:22:34 SHOP AND ALTERATION TAILOR by Armaan Humphrey M.D. [email or web address]
--- NOTE | 2024-04-29 10:48 | ED_ITS ---
HPI - General Adult 2 General: Chief complaint: General Medical Stated complaint: Tired and sweats Time Seen by Provider: 04/29/24 10:37 Source: patient Mode of arrival: wheelchair Limitations: no limitations History of Present Illness: Patient is a 59-year-old female presents to ED today with a complaint of feeling tired and sweating. Patient states she has been having episodes since November feeling fatigued and sweating. She states episodes last approximately a week. She states she had a week long episode in November, another week long episode in February and currently experiencing an episode. 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 Patient is not having any pain. She states during these episodes she never has any discomfort. She states she lays in bed all day due to fatigue for about a week and has intermittent sweating. She is status post complete hysterectomy at the age of 38. She states she has seen her primary care provider as well as her head of integrated media for her symptoms. She does have a history of hypothyroidism and is on levothyroxine for this. She states in between episodes she feels completely asymptomatic and reports normal energy levels. Denies ever having any episode of chest pain, shortness of breath, difficulty breathing, palpitations. No abnormal weight loss. Onset (ago): month(s) Relieving factors: none Exacerbating factors: none Associated symptoms: Reports malaise; Deny chest pain, confusion, dyspnea, headache(s), nausea, rash, palpitations, syncope or vomiting Treatments prior to arrival: none Related Data Home Medications Medication Instructions Recorded Confirmed acetaminophen 500 mg tablet 500 mg PO Q6H PRN Pain 04/29/24 04/29/24 (Tylenol Extra Strength) allopurinol 300 mg tablet 300 mg PO DAILY 04/29/24 04/29/24 calcium 333 mg 1 tab PO DAILY 04/29/24 04/29/24 (carbonate)-magnesium 133 mg (oxide)-zinc 5 mg tablet colchicine 0.6 mg tablet 0.6 mg PO DAILY 04/29/24 04/29/24 dextromethorphan IR 45 1 tab PO DAILY 04/29/24 04/29/24 mg-bupropion ER 105 mg biphasic tablet (Auvelity) diphenoxylate-atropine 2.5 1 tab PO Q6H PRN Diarrhea 04/29/24 04/29/24 mg-0.025 mg tablet levothyroxine 50 mcg tablet See Rx Instructions .Route .COMPLEX 04/29/24 04/29/24 multivitamin 1 tab PO DAILY 04/29/24 04/29/24 valsartan 160 1 tab PO DAILY 04/29/24 04/29/24 mg-hydrochlorothiazide 25 mg tablet Previous Rx's Medication Instructions Recorded gabapentin 300 mg capsule 600 mg (2 x 300 mg) PO TID 90 days 08/23/23 #540 caps pantoprazole 40 mg tablet,delayed 40 mg PO BID 90 days #180 tabs 08/23/23 release verapamil 240 mg 24 hr 240 mg PO DAILY 90 days #90 caps 08/23/23 capsule,extended release clonazepam 0.5 mg tablet 0.25 mg (1/2 x 0.5 mg) PO BID PRN 10/31/23 anxiety 14 days #14 tabs duloxetine 40 mg capsule,delayed 40 mg PO BID 90 days #180 caps 10/31/23 release propranolol 10 mg tablet 10 mg PO TID PRN anxiety #90 tabs 10/31/23 cetirizine 10 mg tablet (Zyrtec) 10 mg PO DAILY PRN allergy 12/10/23 symptoms #20 tabs tizanidine 2 mg tablet 2 mg PO TID PRN muscle spasticity 12/31/23 #60 tabs ergocalciferol (vitamin D2) 1,250 See Rx Instructions .Route 01/14/24 mcg (50,000 unit) capsule .COMPLEX #26 caps sulfasalazine 500 mg tablet 0.5 g PO BID #60 tabs 02/12/24 tramadol 50 mg tablet 50 mg PO TID PRN pain (scale score 02/12/24 7-10) #60 tabs hyaluronate sodium, stabilized 60 60 mg (3 mL) intra-articular ONCE 03/14/24 mg/3 mL intra-articular syringe #3 mL (Durolane) levothyroxine 200 mcg tablet See Rx Instructions .Route 03/18/24 .COMPLEX #90 tabs diclofenac sodium 1 % topical gel 4 g topical QID #300 grams 04/10/24 (Voltaren Arthritis Pain) Allergies Allergy/AdvReac Type Severity Reaction Status Date / Time Penicillins Allergy Mild ALGY-Swell Verified 04/29/24 10:11 Lip/Tongue/Throat Review of Systems 2 Const: Reports: fatigue and malaise Eyes: Denies: change in vision, blurry vision, photophobia, floaters or seeing flashes ENMT: Denies: throat pain, odynophagia, ear or mastoid pain, nasal discharge, nasal congestion or sinus pain Card: Denies: chest pain, palpitations, irregular heart rhythm, edema, swelling of feet/ankles, lightheadedness, syncope, pre-syncope, dyspnea on exertion, orthopnea, leg pain with exertion or acrocyanosis Resp: Denies: dyspnea, productive cough, non-productive cough, pain on inspiration or chest congestion GI: Denies: abdominal pain, nausea, vomiting or diarrhea : Denies: flank pain, difficulty voiding, dysuria, urinary frequency, urinary urgency or urinary hesitancy Musc: Denies: neck pain, back pain, extremity pain, extremity swelling, joint pain or joint swelling Skin/Breast: Denies: rash Neuro: Denies: headache(s), numbness in extremities, weakness in extremities, sensory changes, dizziness, confusion, behavioral changes or seizure-like activity Endo: Reports: tired all the time and excessive sweating; Denies: polydipsia, cold intolerance or change in body appearance PFSH ED 2 PFSH: Medical History Immunization counseling Degenerative joint disease (DJD) of lumbar spine High risk medication use Inflammatory arthritis Osteoarthritis of knees, bilateral Greater trochanteric bursitis of both hips Polyarthralgia Osteoarthritis of shoulder Gout CKD (chronic kidney disease) Kyphosis of cervical region Cervical spondylosis ESR raised Lumbago Cervical paraspinal muscle spasm Acquired hypothyroidism SIMONA (generalized anxiety disorder) Major depression Mixed hearing loss of left ear Pulsatile tinnitus of left ear Unspecified disorder of left middle ear and mastoid Hypertension Bilateral knee pain Vitamin D deficiency GERD (gastroesophageal reflux disease) Surgical History History of brain surgery History of arthroscopy of right shoulder History of bilateral carpal tunnel release History of hysterectomy History of cholecystectomy Family History Mother Hypertension Hyperlipidemia Father Hypertension Grandmother Diabetes Grandfather Diabetes Denies family history of Rheumatoid arthritis Lupus CAD (coronary artery disease) Chronic kidney disease (CKD) Stroke Social History Smoking and tobacco/nicotine status: unknown if used tobacco/nicotine Second hand smoke exposure: No Alcohol intake: never Substance/Drug Use: never Lives independently: Yes Household members: none Marital status: Number of children: 2 Current occupational status: employed Female Reproductive History: Spontaneous abortions: No Physical Exam 2 Const: COMMON NORMALS: no acute distress, patient oriented x3, no limitations, alert and well nourished GENERAL APPEARANCE: cooperative NUTRITIONAL APPEARANCE: obese (BMI 50.1) ORIENTATION/CONSCIOUSNESS: Yes awake, Yes oriented to person, Yes oriented to place and Yes oriented to time HENMT: COMMON NORMALS: normocephalic and atraumatic HEAD & SCALP: normal to inspection, normocephalic and atraumatic Eye: GENERAL EYE: appearance normal, both eyes and all related structures Neck/C-Spine: COMMON NORMALS: full ROM, no lymphadenopathy, supple and no meningeal signs Chest: COMMONS NORMALS: normal inspection of the chest Resp: COMMON NORMALS: normal respiratory effort and clear to auscultation bilaterally AUSCULTATION: clear to auscultation bilaterally Cardio: COMMON NORMALS: regular rate and regular rhythm RATE: regular rate RHYTHM: regular rhythm GI: COMMON NORMALS: Normal to inspection, nondistended, normoactive bowel sounds present, Soft to palpation, non-tender, No hepatosplenomegaly present and no masses PALPATION: Yes Soft to palpation and Yes No hepatosplenomegaly present : COMMON NORMALS: Yes no CVA tenderness BLADDER/KIDNEY EXAM: Yes no CVA tenderness Back/Pelvis: COMMON NORMALS: no CVA tenderness and thoracic and lumbar spine normal to inspection Extremity: COMMON NORMALS: normal to inspection, no clubbing, cyanosis or edema, no calf tenderness and no pedal edema GENERAL: Yes normal exam except as noted Neuro: TOBY COMA SCALE: document GCS findings Toby coma scale eye opening: Spontaneous Turrell coma scale verbal response: Orientated Toby coma scale motor response: Obey commands Toby coma scale total score: 15 COMMON NORMALS: patient oriented x3, moves all extremities, no focal motor deficits and no sensory deficits noted SENSORIUM/ORIENTATION: Yes alert, Yes oriented to person, Yes oriented to place and Yes oriented to time MENINGEAL SIGNS: Yes no meningeal signs Skin: COMMON NORMALS: no rashes or lesions noted GENERAL SKIN EXAM: no rashes or lesions noted Course 2 Vital Signs: Vital signs: Vital Signs Temperature 98.1 F 04/29/24 10:08 Pulse Rate 73 04/29/24 13:30 Respiratory Rate 15 04/29/24 13:30 Blood Pressure 112/74 04/29/24 13:00 Pulse Oximetry 97 04/29/24 13:30 Oxygen Delivery Me thod Room Air 04/29/24 13:30 MDM - General Adult Medical Decision Making Patient clinically appears in no acute distress. Her vital signs are completely normal. Blood work here overall is nonactionable. EKG, CXR, and baseline troponin are all unremarkable. She is not having any chest pain, shortness of breath, palpitations. Essentially patient has had identical episodes of a weeklong bout of fatigue and sweats starting in November, again in February, and again currently. I do not have any suspicion for emergent or life-threatening etiology at this time. I would like her to follow-up with primary care and/or possible her head of integrated media. Return to ED precautions given. Medical Records I reviewed the patient's medical records. Lab Data I reviewed the patient's lab results. 04/29/24 11:05 04/29/24 11:05 Radiology Impressions Chest X-Ray 04/29/24 10:15 IMPRESSION: 1. No acute cardiopulmonary findings. Laboratory Results WBC 7.98 10^3/uL (3.29-11.43) 04/29/24 11:05 RBC 4.28 10^6/uL (3.85-5.65) 04/29/24 11:05 Hgb 12.40 g/dL (11.27-16.99) 04/29/24 11:05 Hct 39.6 % (36-47) 04/29/24 11:05 MCV 92.5 fl (85-98) 04/29/24 11:05 MCH 29.0 pg (27-33) 04/29/24 11:05 MCHC 31.3 g/dL (30-55) 04/29/24 11:05 RDW 15.1 % (12.1-15.1) 04/29/24 11:05 Plt Count 280 10^3/cmm (157-399) 04/29/24 11:05 MPV 10.0 fL (7.4-10.4) 04/29/24 11:05 Neut % (Auto) 81.3 % 04/29/24 11:05 Lymph % (Auto) 9.3 % 04/29/24 11:05 [place] % (Auto) 7.4 % 04/29/24 11:05 Eos % (Auto) 1.0 % 04/29/24 11:05 Baso % (Auto) 0.4 % 04/29/24 11:05 Neut # (Auto) 6.49 10^3/uL (1.8-7.7) 04/29/24 11:05 Lymph # (Auto) 0.7 10^3/uL (0.8-4.8) L 04/29/24 11:05 [place] # (Auto) 0.6 10^3/uL (0.2-0.9) 04/29/24 11:05 Eos # (Auto) 0.1 10^3/uL (0.0-0.8) 04/29/24 11:05 Baso # (Auto) 0.0 10^3/uL (0.0-0.1) 04/29/24 11:05 Nucleated RBC % (auto) 0 % 04/29/24 11:05 Nucleated RBCs # 0.0 /100WBC 04/29/24 11:05 Sodium 143 mmol/L (136-145) 04/29/24 11:05 Potassium 3.7 mmol/L (3.5-5.1) 04/29/24 11:05 Chloride 102 mmol/L (98-107) 04/29/24 11:05 Carbon Dioxide 28 mmol/L (22-29) 04/29/24 11:05 Anion Gap 16.7 (5-19) 04/29/24 11:05 BUN 14 mg/dL (8-23) 04/29/24 11:05 Creatinine 1.0 mg/dL (0.5-0.9) H 04/29/24 11:05 GFR Calculation 56.4 mL/min (90-130) L 04/29/24 11:05 Glucose 125 mg/dL (65-115) H 04/29/24 11:05 Calculated Osmolality 298 mOsm/kg (285-295) H 04/29/24 11:05 Calcium 9.4 mg/dL (8.5-10.5) 04/29/24 11:05 Total Bilirubin 0.3 mg/dL (0.15-1.2) 04/29/24 11:05 AST 15 U/L (0-32) 04/29/24 11:05 ALT 12 U/L (0-33) 04/29/24 11:05 Alkaline Phosphatase 84 U/L (35-105) 04/29/24 11:05 Troponin T Baseline < 6 ng/L (0-10) 04/29/24 11:05 Total Protein 6.9 g/dL (6.6-8.7) 04/29/24 11:05 Albumin 4.1 g/dL (3.5-5.2) 04/29/24 11:05 Globulin 2.8 g/dL (1.3-4.6) 04/29/24 11:05 TSH 2.62 uIU/mL (0.27-4.20) 04/29/24 11:05 Urine Color Yellow (Yellow) 04/29/24 11:53 Urine Appearance Cloudy (CLEAR) A 04/29/24 11:53 Urine pH 8.5 (5-7) A 04/29/24 11:53 Ur Specific [place] 1.024 (1.005-1.030) 04/29/24 11:53 Urine Protein 1+ (Negative) A 04/29/24 11:53 Urine Glucose (UA) Negative (Normal) 04/29/24 11:53 Urine Ketones 2+ (Negative) H 04/29/24 11:53 Urine Blood Negative (Negative) 04/29/24 11:53 Urine Nitrate Negative (Negative) 04/29/24 11:53 Urine Bilirubin Negative (Negative) 04/29/24 11:53 Urine Urobilinogen 1.0 mg/dL (Negative) 04/29/24 11:53 Ur Leukocyte Esterase Trace (Negative) A 04/29/24 11:53 Urine RBC 0-2 /hpf (0-2) 04/29/24 11:53 Urine WBC 0-5 /hpf (0-5) 04/29/24 11:53 Ur Squamous Epith Cells 6-10 /hpf (0-5) 04/29/24 11:53 Amorphous Sediment Not Reportable 04/29/24 11:53 Urine Bacteria None seen /hpf (NONE) 04/29/24 11:53 Hyaline Casts 0.81 /lpf 04/29/24 11:53 All radiology interpretation(s) finalized by discharge Discharge Plan Discharge Patient Disposition: Home Clinical Impression: Sweating Fatigue Qualifiers: Fatigue type: unspecified Qualified Code(s): R53.83 - Other fatigue Condition: Stable Prescriptions: No Action gabapentin 300 mg capsule 600 mg PO TID 90 Days Qty: 540 2RF pantoprazole 40 mg tablet,delayed release (DR/EC) 40 mg PO BID 90 Days Qty: 180 2RF verapamil 240 mg capsule,ext rel. pellets 24 hr 240 mg PO DAILY 90 Days Qty: 90 2RF Durolane 60 mg/3 mL syringe 60 mg intra-articular ONCE Qty: 3 0RF cetirizine [Zyrtec] 10 mg tablet 10 mg PO DAILY PRN (Reason: allergy symptoms) Qty: 20 0RF duloxetine 40 mg capsule,delayed release(DR/EC) 40 mg PO BID 90 Days Qty: 180 2RF propranolol 10 mg tablet 10 mg PO TID PRN (Reason: anxiety) Qty: 90 2RF clonazepam 0.5 mg tablet 0.25 mg PO BID PRN (Reason: anxiety) 14 Days Qty: 14 0RF tizanidine 2 mg tablet 2 mg PO TID PRN (Reason: muscle spasticity) Qty: 60 5RF ergocalciferol (vitamin D2) 1,250 mcg (50,000 unit) capsule See Rx Instructions .ROUTE .COMPLEX Qty: 26 0RF Dose Instruction: TAKE ONE CAPSULE BY MOUTH ONCE every WEEK FOR 90 DAYS Rx Instructions: TAKE ONE CAPSULE BY MOUTH ONCE every WEEK FOR 90 DAYS sulfasalazine 500 mg tablet 0.5 g PO BID Qty: 60 5RF tramadol 50 mg tablet 50 mg PO TID PRN (Reason: pain (scale score 7-10)) Qty: 60 1RF levothyroxine 200 mcg tablet See Rx Instructions .ROUTE .COMPLEX Qty: 90 0RF Dose Instruction: TAKE 1 TABLET BY MOUTH ONCE DAILY Rx Instructions: TAKE 1 TABLET BY MOUTH ONCE DAILY; take along with 50mcg FOR total DOSE 250mcg daily diclofenac sodium [Voltaren Arthritis Pain] 1 % gel 4 g topical QID Qty: 300 0RF Rx Instructions: apply to single knee, ankle, foot; for foot includes sole/toes/top of foot levothyroxine 50 mcg tablet See Rx Instructions .ROUTE .COMPLEX Rx Instructions: TAKE 1 TABLET BY MOUTH ONCE DAILY; take along with 200mcg FOR total DOSE 250mcg daily allopurinol 300 mg tablet 300 mg PO DAILY colchicine 0.6 mg tablet 0.6 mg PO DAILY valsartan-hydrochlorothiazide 160-25 mg tablet 1 tab PO DAILY Rx Instructions: TAKE 1 TABLET BY MOUTH DAILY Auvelity 45-105 mg tablet, IR and ER, biphasic 1 tab PO DAILY Rx Instructions: TAKE ONE TABLET BY MOUTH TWICE DAILY diphenoxylate-atropine 2.5-0.025 mg tablet 1 tab PO Q6H PRN (Reason: Diarrhea) multivitamin [Daily Vitamin] Tablet 1 tab PO DAILY acetaminophen [Tylenol Extra Strength] 500 mg Tablet 500 mg PO Q6H PRN (Reason: Pain) calcium carb-mag ox-zinc gluc 333-133-5 mg Tablet 1 tab PO DAILY Discharge Orders: Discharge ED (Routine); Ordered 04/29/24 Ordered By: Leydi Adams Referrals: Jennifre Adam MD [Primary Care Provider] - Activity Restrictions/Additional Instructions: As we discussed, I would like you to follow-up with your primary care provider and/or your head of integrated media for further evaluation of your symptoms. You have been cleared from an emergency medical standpoint but I would like you to have further evaluation. You may return to the emergency department at anytime for any further concerns you may have. Coding Level of Care Code ED Residential Case Manager for Emi Bull
[2024-04-29 11:16] LABS: Basophils % 0.4 %; Eosinophils # 0.1 10^3/uL (0.0-0.8); Hematocrit 39.6 % (36-47); Lymphocytes # 0.7 10^3/uL (0.8-4.8); Lymphocytes % 9.3 %; Mean Corpuscular HGB Conc 31.3 g/dL (30-55); Mean Corpuscular Volume 92.5 fl (85-98); Monocytes # 0.6 10^3/uL (0.2-0.9); Monocytes % 7.4 %; Neutrophils # 6.49 10^3/uL (1.8-7.7); Neutrophils % 81.3 %; Nucleated Red Blood Cells % 0 %; Platelet Count 280 10^3/cmm (157-399); Red Blood Count 4.28 10^6/uL (3.85-5.65); Red Cell Distribution Width 15.1 % (12.1-15.1); White Blood Count 7.98 10^3/uL (3.29-11.43)
[2024-04-29 11:36] LABS: Troponin(5th) Baseline < 6 ng/L (0-10)
--- NOTE | 2024-04-29 11:46 | PC.NURSE ---
spoke to jr in regards to the ordered pcr nasal swab, jr stated to cancel swabs.
[2024-04-29 12:07] LABS: Bilirubin Urine Negative (Negative); Blood Urine Negative (Negative); Glucose Urine UA Negative (Normal); Ketones Urine 2+ (Negative); Leukocyte Esterase Urine Trace (Negative); Nitrate Urine Negative (Negative); Protein Urine 1+ (Negative); Specific Gravity, Urine 1.024 (1.005-1.030); Urine Appearance Cloudy (CLEAR); Urine Color Yellow (Yellow); pH Urine 8.5 (5-7)
[2024-04-29 12:12] LABS: Add Urine Microscopic? YES; Bacteria Urine None Seen /hpf; Hyaline Casts Urine 0.81 /lpf; RBC Urine 0-2 /hpf (0-2); WBC Urine 0-5 /hpf (0-5)
--- NOTE | 2024-04-29 12:26 | ECG_ITS ---
[facility] Date: 2024-04-29 Pat Name: Tamiko Case Department: Room: Gender: Female Senior Ux Designer: : 1965 Requested By: Leydi Adams Order Number: [id number] Rod MD: Armaan Hupmhrey M.D. Measurements Intervals [place] Rate: 74 P: 13 MS: 145 QRS: 21 QRSD: 105 T: 30 QT: 400 QTc: 444 Interpretive Statements SINUS RHYTHM LOW QRS VOLTAGE IN PRECORDIAL LEADS [QRS DEFLECTION < 1.0 mV IN CHEST LEADS] Compared to ECG 04/29/2024 10:05:18 Myocardial infarct finding no longer present Electronically Signed On 04-29-2024 21:20:05 SET UP AND LAY OUT INSPECTOR by Armaan Humphrey M.D. [email or web address]
[2024-04-29 13:23] LABS: Alanine Aminotransferase 12 U/L (0-33); Albumin Level 4.1 g/dL (3.5-5.2); Alkaline Phosphatase 84 U/L (35-105); Anion Gap 16.7 (5-19); Aspartate Amino Transferase 15 U/L (0-32); Blood Urea Nitrogen 14 mg/dL (8-23); Calcium 9.4 mg/dL (8.5-10.5); Carbon Dioxide 28 mmol/L (22-29); Chloride 102 mmol/L (98-107); Creatinine Clr Calc Pharmacy 77.2102; Globulin 2.8 g/dL (1.3-4.6); Glomerular Filtration Rate 56.4 mL/min (90-130); Glucose 125 mg/dL (65-115); Osmolality Calculated 298 mOsm/kg (285-295); Potassium 3.7 mmol/L (3.5-5.1); Sodium 143 mmol/L (136-145); Thyroid Stimulating Hormone 2.62 uIU/mL (0.27-4.20); Total Bilirubin 0.3 mg/dL (0.15-1.2); Total Protein 6.9 g/dL (6.6-8.7)
== END 2024-04-29 13:50 | disposition home or self-care (01) ==
PROVIDERS: Emergency Provider Physician Assistant; PCP Family Medicine
DX: R61 Generalized hyperhidrosis (principal); R53.83 Other fatigue; I12.9 Hypertensive chronic kidney disease with stage 1 through stage 4 chronic kidney disease, or unspecified chronic kidney disease; N18.9 Chronic kidney disease, unspecified
CPT/HCPCS: 36415; 71045; 80053; 81001; 84443; 84484; 85025; 93005; 99285

== ENCOUNTER 2024-05-05 11:22 | Outpatient (CLI) | payer OTHER, SELFPAY | END 2024-05-05 11:23 | disposition home or self-care (01) | LOC: LAB 11:24 | PROVIDERS: PCP Family Medicine; Visit Provider Emergency Medicine | DX: R19.7 Diarrhea, unspecified (principal) | CPT/HCPCS: 87045; 87427; 87449 ==

== ENCOUNTER → 2024-05-20 13:38 | Outpatient (BNVA) | payer OTHER, SELFPAY | PROVIDERS: PCP Family Medicine; Referring Provider Nurse Practitioner; Visit Provider Nurse Practitioner | DX: R53.83 Other fatigue (principal); R19.7 Diarrhea, unspecified | CPT/HCPCS: 86160; 86618; 86666; 86668; 86757 ==

== ENCOUNTER → 2024-06-03 09:32 | Outpatient (BNVA) | payer OTHER, SELFPAY | PROVIDERS: PCP Family Medicine; Referring Provider Internal Medicine Rheumatology; Visit Provider Internal Medicine Rheumatology | DX: M25.50 Pain in unspecified joint (principal); M70.61 Trochanteric bursitis, right hip; M70.62 Trochanteric bursitis, left hip; N18.30 Chronic kidney disease, stage 3 unspecified; M1A.39X0 Chronic gout due to renal impairment, multiple sites, without tophus (tophi) | CPT/HCPCS: 80076; 82565; 85651; 86140 ==

== ENCOUNTER 2024-06-04 11:23 | Outpatient (CLI) | payer OTHER, SELFPAY ==
--- NOTE | 2024-06-04 12:00 | USCV_ITS ---
Tamiko Case Age: 59 Gender: F : 1965 Exam Date: 06/04/2024 11:36 Ordering Phys: Jennifer Adam MD Technologist: CT Exam Location: [facility] – [place], [place] Indication: murmur BP: 140 / 79 HR: 70 Rhythm: Sinus Technical Quality: Adequate MEASUREMENTS (Male / Female) Normal Values 2D ECHO LVOT Diameter 2.1 cm LV Ejection Fraction MOD 4C 55.0 % LV Ejection Fraction MOD 2C 57.1 % LV Ejection Fraction 2C AL 59.0 % LA Diameter 3.5 cm RA Systolic Volume 4C AL 35.2 ml RA Systolic Volume 4C MOD 34.3 ml LA Sys Volume AL 51.0 cm cubed LA Sys Volume Index AL 20.8 cm cubed/m squared Aorta at Sinotubular Diameter 2.0 cm M-MODE LA Ao Ratio MM 1.3 AV Cusp Separation MM 1.7 cm DOPPLER AV Peak Velocity 224.0 cm/s LVOT Peak Velocity 128.0 cm/s AV Area Cont Eq vti 2.2 cm squared AV Area Cont Eq pk 2.0 cm squared MV Peak Velocity 155.0 cm/s MV Area PHT 3.1 cm squared Mitral E to A Ratio 0.9 TR Peak Velocity 301.0 cm/s TR Peak Gradient 36.2 mmHg TV Peak E Velocity 104.0 cm/s PV Peak Velocity 104.0 cm/s FINDINGS Left Ventricle Normal left ventricular size and systolic function, EF 57% . No regional wall motion abnormalities. Grade I/IV diastolic dysfunction (abnormal relaxation filling pattern), normal to mildly elevated filling pressures. Right Ventricle The right ventricle is normal in size and function. Right Atrium The right atrium is normal in size. Left Atrium Mildly increased left atrial size. Mitral Valve Mild mitral annular calcification. Trace mitral valve regurgitation. Aortic Valve Trace aortic valve regurgitation. Aortic valve sclerosis. Tricuspid Valve No gross abnormalities noted Pulmonic Valve Pulmonic valve not well visualized. Pericardium Normal pericardium without effusion. Aorta Normal ascending aorta dimension. IVC The inferior vena cava appears normal. CONCLUSIONS Normal left ventricular size and systolic function, EF 57% . No regional wall motion abnormalities. Grade I/IV diastolic dysfunction (abnormal relaxation filling pattern), normal to mildly elevated filling pressures. Aortic valve sclerosis. Trace aortic valve regurgitation. Mildly increased left atrial size. Mild mitral annular calcification. Trace mitral valve regurgitation. Trace aortic valve regurgitation. There is no pericardial effusion. There are no intracardiac masses. No similar previous studies are available for comparison. Dr Sean Singleton MD [facility] (Electronically Signed) Final Date: 06 June 2024 18:53 S
== END 2024-06-04 11:24 | disposition home or self-care (01) ==
PROVIDERS: PCP Family Medicine; Visit Provider Family Medicine
DX: R01.1 Cardiac murmur, unspecified (principal); R53.83 Other fatigue; R93.1 Abnormal findings on diagnostic imaging of heart and coronary circulation; I51.7 Cardiomegaly; I34.81 Nonrheumatic mitral (valve) annulus calcification; I35.8 Other nonrheumatic aortic valve disorders
CPT/HCPCS: 93306

== ENCOUNTER → 2024-07-10 14:41 | Outpatient (BNVA) | payer OTHER, SELFPAY | PROVIDERS: PCP Family Medicine; Visit Provider Family Medicine | DX: J06.9 Acute upper respiratory infection, unspecified (principal); J98.8 Other specified respiratory disorders; B97.89 Other viral agents as the cause of diseases classified elsewhere | CPT/HCPCS: 87400; 87426 ==

== ENCOUNTER 2024-07-23 10:31 | Outpatient (CLI) | payer OTHER, SELFPAY ==
--- NOTE | 2024-07-23 11:00 | MR_ITS ---
WS: [id number] MRI LUMBAR SPINE NONCONTRAST TECHNIQUE: Sagittal T1, T2 and STIR imaging. Axial T1 and T2 imaging. CLINICAL INFORMATION: M54.16 - Radiculopathy, lumbar region COMPARISON: None. FINDINGS: Mild lumbar curve. No acute compression. Minimal anterolisthesis L4 on L5. No high-grade central canal stenosis. L1-L2: Mild facet arthropathy. L2-L3: Mild facet arthropathy. Spinal canal and foramen are patent. L3-L4: Mild facet arthropathy. Spinal canal and foramen are patent. L4-L5: Slight anterolisthesis. Mild annular bulging. Slight narrowing of the subarticular recess bilaterally. Moderate facet arthropathy with small facet effusions. Foramen are patent. L5-S1: No significant disc bulging. Moderate facet arthropathy with small facet effusions. Spinal canal and foramen are patent. Visualized pelvic bony structures: Normal. Paravertebral soft tissues: Normal. MR/MR lumbar spine wo con* [id number] IMPRESSION: 1. Mild annular bulging L4-5 with slight narrowing of the greater than LEFT mensah barticular recess. 2. Moderate facet arthropathy L4-L5 and L5-S1 with small facet effusions carey tible with degenerative or inflammatory synovitis. 3. Minimal anterolisthesis L4 on L5. 4. No other acute findings.
== END 2024-07-23 10:32 | disposition home or self-care (01) ==
PROVIDERS: PCP Family Medicine; Visit Provider Nurse Practitioner
DX: M54.16 Radiculopathy, lumbar region (principal); M51.369 Other intervertebral disc degeneration, lumbar region without mention of lumbar back pain or lower extremity pain; M47.896 Other spondylosis, lumbar region; M47.897 Other spondylosis, lumbosacral region; R93.7 Abnormal findings on diagnostic imaging of other parts of musculoskeletal system; M43.8X6 Other specified deforming dorsopathies, lumbar region; M25.48 Effusion, other site
CPT/HCPCS: 72148

== ENCOUNTER → 2024-08-27 14:31 | Outpatient (BNVA) | payer OTHER, SELFPAY | PROVIDERS: PCP Family Medicine; Visit Provider Internal Medicine Cardiovascular Disease | DX: R07.9 Chest pain, unspecified (principal) | CPT/HCPCS: 93005 ==

== ENCOUNTER → 2024-09-29 07:53 | Outpatient (BNVA) | payer OTHER, SELFPAY | PROVIDERS: PCP Family Medicine; Referring Provider Internal Medicine; Visit Provider Internal Medicine | DX: E03.9 Hypothyroidism, unspecified (principal) | CPT/HCPCS: 84439; 84443 ==

== ENCOUNTER → 2024-09-30 07:54 | Outpatient (BNVA) | payer OTHER, SELFPAY | PROVIDERS: PCP Family Medicine; Visit Provider Physician Assistant | DX: M17.12 Unilateral primary osteoarthritis, left knee (principal); G89.29 Other chronic pain; M25.561 Pain in right knee; M25.562 Pain in left knee; E03.9 Hypothyroidism, unspecified; K21.00 Gastro-esophageal reflux disease with esophagitis, without bleeding; N18.30 Chronic kidney disease, stage 3 unspecified; R73.03 Prediabetes | CPT/HCPCS: 36415; 73560; 73565; 83516; 84439; 84443; 86376; 86800 ==

== ENCOUNTER → 2024-10-30 16:05 | Outpatient (BNVA) | payer OTHER, SELFPAY | PROVIDERS: PCP Family Medicine; Visit Provider Nurse Practitioner | DX: M25.532 Pain in left wrist (principal) | CPT/HCPCS: 73110 ==

== ENCOUNTER 2024-12-03 10:56 | Outpatient (CLI) | payer OTHER, SELFPAY ==
--- NOTE | 2024-12-03 11:00 | MM_ITS ---
WS: [id number] BILATERAL 3D TOMOSYNTHESIS DIGITAL SCREENING MAMMOGRAPHY WITH CAD CLINICAL INFORMATION: SCREENING HISTORY: Screening mammogram. No current complaints. COMPARISON 2023 TECHNIQUE: Bilateral CC and MLO views. FINDINGS: Scattered fibroglandular densities bilaterally. No suspicious focal mass, asymmetry, calcifications, or architectural distortion. No evidence of malignancy. Incidental punctate calcifications. Stable clusters of calcifications anterior LEFT breast. MM/MM scr tomosynthesis [id number] IMPRESSION: DENSITY: There are scattered areas of fibroglandular density. BI-RADS: 2 - Benign. FOLLOW UP: 1 Year Follow-up Recommend return to annual screening mammography.
== END 2024-12-03 10:57 | disposition home or self-care (01) ==
LOC: MOBLMAM 10:57
PROVIDERS: PCP Family Medicine; Visit Provider Family Medicine
DX: Z12.31 Encounter for screening mammogram for malignant neoplasm of breast (principal); Z79.899 Other long term (current) drug therapy; M19.90 Unspecified osteoarthritis, unspecified site; I10 Essential (primary) hypertension; R73.03 Prediabetes; E03.9 Hypothyroidism, unspecified; N18.31 Chronic kidney disease, stage 3a; R92.323 Mammographic fibroglandular density, bilateral breasts; R92.1 Mammographic calcification found on diagnostic imaging of breast
CPT/HCPCS: 77063; 77067; 80053; 80061; 83036; 84439; 84443; 84481; 85025; 85651; 86140

== ENCOUNTER → 2024-12-23 15:17 | Outpatient (BNVA) | payer OTHER, SELFPAY | PROVIDERS: PCP Family Medicine; Visit Provider Family Medicine | DX: Z53.9 Procedure and treatment not carried out, unspecified reason (principal) | CPT/HCPCS: 83036 ==

== ENCOUNTER 2025-01-06 11:37 | Outpatient (CLI) | payer OTHER, SELFPAY | END 2025-01-06 11:38 | disposition home or self-care (01) | LOC: SPT 11:37 | PROVIDERS: PCP Family Medicine; Visit Provider Student in an Organized Health Care Education/Training Program | DX: Z46.89 Encounter for fitting and adjustment of other specified devices (principal); M17.12 Unilateral primary osteoarthritis, left knee | CPT/HCPCS: L1851 ==

== ENCOUNTER → 2025-02-02 08:51 | Outpatient (BNVA) | payer OTHER, SELFPAY | PROVIDERS: PCP Family Medicine; Referring Provider Internal Medicine Rheumatology; Visit Provider Internal Medicine Rheumatology | DX: Z79.899 Other long term (current) drug therapy (principal) | CPT/HCPCS: 80076; 82306; 82565; 85025; 85651; 86140; 86480; 86704; 86803; 87340 ==

== ENCOUNTER → 2025-02-11 08:20 | Outpatient (BNVA) | payer OTHER, SELFPAY | PROVIDERS: PCP Family Medicine; Referring Provider Nurse Practitioner; Visit Provider Nurse Practitioner | DX: I12.9 Hypertensive chronic kidney disease with stage 1 through stage 4 chronic kidney disease, or unspecified chronic kidney disease (principal); N18.30 Chronic kidney disease, stage 3 unspecified | CPT/HCPCS: 80069; 82043; 82310; 83970 ==

== ENCOUNTER 2025-04-14 10:21 | Outpatient (CLI) | payer OTHER, SELFPAY ==
--- NOTE | 2025-04-14 10:28 | CTR_ITS ---
PROCEDURE INFORMATION: Exam: CT Temporal Bones Without Contrast. Exam date and time: 04/14/2025 10:54 AM Age: 60 years old Clinical indication: Condition or disease; Prior surgery; Surgery date: 6+ months; Brain herniated into left ear, loss of hearing, craniotomy; Additional info: HX of craniotomy TECHNIQUE: Imaging protocol: Computed tomography of the temporal bones without contrast. Radiation optimization: All CT scans at this facility use at least one of these dose optimization techniques: automated exposure control; mA and/or kV adjustment per patient size (includes targeted exams where dose is matched to clinical indication); or iterative reconstruction. COMPARISON: CT temporal bone wo con* [id number] 12/02/2021 9:34 AM RADIATION DOSE METRICS: Total DLP (mGy-cm): 358.9 FINDINGS: RIGHT TEMPORAL BONE: External auditory canal: Unremarkable. Meso tympanum: There is no thickening or retraction of the tympanic membrane. Ossicular mineralization, development, and alignment are normal. There is no indication of otitis media or mastoiditis. No bone erosion is evident. Otic capsule: The vestibulocochlear apparatus are normal development. There is no indication of otosclerosis or hydrops. The superior margin of the right superior semicircular canal is thin but appears to be intact and unchanged from prior study. IAC: There is no evidence of erosion of the internal auditory canal. There is good symmetry with the contralateral side. LEFT TEMPORAL BONE: External auditory canal: Unremarkable. Meso tympanum: There is no thickening or retraction of the tympanic membrane. Ossicular mineralization, development, and alignment are normal. There is no indication of otitis media or mastoiditis. Canal of mastoidectomy has been performed with resection of characters septum in communication with the meso tympanum. No interval changes apparent. Again seen is a bony defect in the roof of the attic, extending from the facial canal laterally for a distance of approximately 6.9 mm. The AP diameter measures approximately 6 mm in length. Soft tissue density extends into the attic through this defect for distance of approximately 3.5 mm, contacting the acute malleolar articulation. On the prior examination there is a tiny soft tissue density that extends is short distance inferiorly along the anterior margin of the malleus. This soft tissue density is no longer apparent. The meso tympanum is otherwise unchanged in appearance. There is no evidence of erosion of the scutum. Otic capsule: The vestibulocochlear apparatus are normal development. There is no indication of otosclerosis or hydrops. There is no bony dehiscence of the semicircular canals. IAC: There is no evidence of erosion of the internal auditory canal. There is good symmetry with the contralateral side. ADDITIONAL STRUCTURES: Nasopharynx and visible paranasal sinuses: Unremarkable. Skull base: Normal. Visible brain parenchyma: Unremarkable. CT/CT temporal bone wo con* [id number] IMPRESSION: 1. Dehiscence of the roof of the left attic, measuring 6.9 x 6.6 mm in diameter. The size of the defect is unchanged as compared to prior study. 2. Soft tissue density protruding through the defect into the superior attic of the left meso tympanum for distance of the approximately 3.5 mm. 3. Small collection of soft tissue density previously seen anterior to the malleus is no longer identified. 4. No additional change from prior study. 5. Stable postop appearance consistent with canal up mastoidectomy.
== END 2025-04-14 10:22 | disposition home or self-care (01) ==
LOC: RAD 10:22
PROVIDERS: PCP Family Medicine; Visit Provider Neurological Surgery
DX: Z98.890 Other specified postprocedural states (principal); H95.192 Other disorders following mastoidectomy, left ear; H66.3X2 Other chronic suppurative otitis media, left ear; H90.A22 Sensorineural hearing loss, unilateral, left ear, with restricted hearing on the contralateral side
CPT/HCPCS: 70480